=== PATIENT | male | born 2000 | race Caucasian/White ===

== ENCOUNTER 2018-09-23 18:38 | Emergency (ER) | payer OTHER ==
[2018-09-23] MEDS ORDERED: IBUP200C74 PO (18:51)
[2018-09-23] MEDS ORDERED: FLUT16SP19 NS (18:51)
[2018-09-23 19:00] VITALS: BP 127/79
--- NOTE | 2018-09-23 19:11 | ER Report ---
History and Physical Time Seen By MD: 18:55 Hx. of Stated Complaint: hit head HPI/ROS CHIEF COMPLAINT: head injury, unequal pupils HISTORY OF PRESENT ILLNESS: This is a 18 year old male. He had a head injury 4 days ago, hit the top of his head. Had a headache earlier today, but took some Ibuprofen. No headache now. Noted his right pupil is enlarge compared to the left this morning. Has no vision changes. Has normal sensation, no numbness. No weakness. Allergies: Coded Allergies: No Known Allergies (Verified Allergy, Unknown, 09/23/18) Home Meds Reported Medications Ibuprofen (ADVIL) 200 Mg Capsule, 1-2 CAP PO Q6-8H PRN for PAIN, CAPSULE 09/23/18 Fluticasone Prop 50 Mcg Ns (FLONASE 50 MCG NS) 16 Gm [place].susp, 2 SPRAYS NS QODAY, BOT 09/23/18 Reviewed Nurses Notes: Yes Hx Substance Use Disorder: No Hx Alcohol Use: No Constitutional Vital Sign - Last 24 Hours 09/23/18 09/23/18 09/23/18 09/23/18 18:42 18:48 18:53 19:00 Temp 98.2 Pulse 70 77 Resp 12 B/P (MAP) 141/80 (100) 141/80 127/79 (95) Pulse Ox 94 94 O2 Delivery Room Air Physical Exam General Appearance: The patient is alert. No acute distress. Non-toxic in appearance. Eyes: Pupils are round, unequal with right side about twice as large as the left side. Reactive to light. No pallor, injection or icterus. Extraocular movements are intact. No nystagmus. ENT: Mucous membranes are moist. Normal oral mucosa. Posterior oropharynx is normal. Neck: Supple and non tender. Respiratory: Lungs are clear to auscultation. Cardiovascular: Regular rate and rhythm. No murmurs, gallops or rubs. Gastrointestinal: Abdomen is soft and non tender. Nondistended. Neurological: Alert and oriented x3. Cranial nerves II through XII show no acute deficits on my exam except the pupil changes. Normal sensation and motor in face, midline tongue, symmetric palate elevation. Extremity normal sensation and motor function. Skin: Warm and dry. No rashes. Musculoskeletal: Extremities are nontender. No tenderness in palpation of the cervical, thoracic and lumbar spine. DIFFERENTIAL DIAGNOSIS: After history and physical exam, differential diagnosis was considered for patient with recent head injury, now with unequal pupils without other explainable cause. Medical Decision Making EKG/Imaging Imaging MR BRAIN/BRAIN STEM W/O CON HISTORY: head injury, enlarge pupil COMPARISON STUDIES: None TECHNIQUE: Multiplanar, multisequence brain MRI was performed without IV contrast. FINDINGS: Ventricles/sulci/fissures: Midline in position and normal in configuration. Masses/hemorrhage/midline shift: No hemorrhage noted White matter: The white matter edema Cortical osborne matter: No cerebral edema or contusion Osborne-white differentiation: Negative Extra-axial spaces: No subarachnoid blood. No subdural or epidural fluid collections. Calvarium: Negative Diffusion: No diffusion restriction noted. Vascular structures: Negative Sagittal midline structures: Negative Paranasal sinuses/mastoid air cells: Negative Orbits: Negative Visualized upper neck: Negative Left maxillary mucous retention cyst or polyp measuring 1.5 cm. IMPRESSION: Normal MR brain. No evidence of mass, acute ischemia or hemorrhage. Report Dictated By: Amrit Gandhi MD at 09/23/2018 8:14 PM ED Course/Re-evaluation ED Course Imaging negative. Discussed needing to get an eye exam from talent sourcing specialist. The enlarged pupil could be from concussion as well. No other neurologic deficits noted. See instructions below. Decision to Disposition Date: Sep 23, 2018 Decision to Disposition Time: 21:06 Depart Departure Latest Vital Signs Vital Signs Date Time Temp Pulse Resp B/P (MAP) Pulse Ox O2 Delivery O2 Flow Rate FiO2 09/23/18 19:00 127/79 (95) 09/23/18 18:53 77 94 09/23/18 18:48 98.2 12 Room Air Impression: Primary Impression: Concussion Condition: Improved Disposition: HOME OR SELF-CARE Patient Instructions: Concussion (ED) Additional Instructions: Concussion symptoms include: headache, nausea/vomiting, dizziness, difficulty concentrating, blurred vision. These symptoms can be mild or moderate. If symptoms become severe, follow-up evaluation is needed. Avoid any heavy physical activity and avoid any activities that may cause repeat head injury. Concussion symptoms can last for days or weeks. There is no way to predict how long these will last. It is okay to sleep after a head injury. Return to the ER for any altered mental status changes or confusion, vision changes, or if there are other abnormal or severe changes. It is okay to use Tylenol or ibuprofen for pain. Do not use any medicines containing aspirin until symptoms resolve. Recommend I exam with an talent sourcing specialist this next week, sooner if having any further problems. Problem Qualifiers Primary Impression: Concussion Encounter type: initial encounter Loss of consciousness presence/duration: without LOC Qualified Codes: S06.0X0A - Concussion without loss of consciousness, initial encounter CHELY COOPER MD Sep 23, 2018 19:11
--- NOTE | 2018-09-23 20:40 | RADIOLOGY IMAGING REPORT ---
FACILITY: [facility] PATIENT NAME: Ramon Zayas : 2000 MR: [id number] V: [id number] EXAM DATE: ORDERING PHYSICIAN: CHELY COOPER TECHNOLOGIST: Location: [facility] Patient: Ramon Zayas : 2000 Visit/Account:[id number] Date of Sevice: 09/23/2018 MR BRAIN/BRAIN STEM W/O CON HISTORY: head injury, enlarge pupil COMPARISON STUDIES: None TECHNIQUE: Multiplanar, multisequence brain MRI was performed without IV contrast. FINDINGS: Ventricles/sulci/fissures: Midline in position and normal in configuration. Masses/hemorrhage/midline shift: No hemorrhage noted White matter: The white matter edema Cortical osborne matter: No cerebral edema or contusion Osborne-white differentiation: Negative Extra-axial spaces: No subarachnoid blood. No subdural or epidural fluid collections. Calvarium: Negative Diffusion: No diffusion restriction noted. Vascular structures: Negative Sagittal midline structures: Negative Paranasal sinuses/mastoid air cells: Negative Orbits: Negative Visualized upper neck: Negative Left maxillary mucous retention cyst or polyp measuring 1.5 cm. IMPRESSION: Normal MR brain. No evidence of mass, acute ischemia or hemorrhage. Report Dictated By: Amrit Gandhi MD at 09/23/2018 8:14 PM Report E-Signed By: Amrit Gandhi MD at 09/23/2018 8:34 PM WSN:[id number]
== END 2018-09-23 21:12 | disposition home or self-care (01) ==
LOC: ER 19:26
DX: S06.0X0A Concussion without loss of consciousness, initial encounter (principal)
CPT/HCPCS: 70551; 99284